=== PATIENT | female | born 1965 ===

== ENCOUNTER → 2018-03-11 14:00 | Outpatient (CLI) | payer OTHER, SELFPAY | DX: Z23 Encounter for immunization (principal) | CPT/HCPCS: 90471; 90686 ==

== ENCOUNTER 2023-10-04 16:51 | Emergency (ER) | payer OTHER, SELFPAY ==
[2023-10-04] VITALS (34 sets, daily range): BP systolic 124–189; BP diastolic 66–115; PULSE 75–157; RESP 12–31; TEMP 36.4; O2SAT 96–100; BMI 33.4
--- NOTE | 2023-10-04 17:05 | ED.ARRPALP ---
HPI - Arrhythmia/Palpitations <Nicanor Prado DO - Last Filed: 10/05/23 06:59> General Chief Complaint: Arrhythmia/Palpitations Stated Complaint: Palpitations Time Seen by Provider: 10/04/23 16:58 Source: patient Mode of arrival: Ambulatory History of Present Illness HPI narrative: Patient is a 57-year-old female is here for evaluation of palpitations and lightheadedness. Her current episode started approximately 1 hour ago. She did have an episode earlier today that was sudden onset while she was at work. Lasted an hour or more and then resolved on its own. She has had 2 prior episodes over the past several months. Each of which lasted several hours and then resolved on their own. She denies chest pain but does have quite a bit of discomfort from how fast her heart rate is gone. Lightheadedness. No shortness of breath. No diagnosis of atrial fibrillation. No prior history of coronary artery disease. Related Data Previous Rx's Medication Instructions Recorded apixaban 5 mg tablet 5 mg PO BID #60 tabs 10/04/23 diltiazem HCl 120 mg capsule,24 120 mg PO DAILY #30 caps 10/04/23 hr,extended release Allergies Allergy/AdvReac Type Severity Reaction Status Date / Time ondansetron [From Zofran] AdvReac Headache Verified 10/04/23 20:39 Review of Systems <DO Alfredo Alford Last Filed: 10/05/23 06:59> Constitutional Constitutional: Reports system reviewed and no additional complaints, except as documented Cardiovascular Cardiovascular: Reports system reviewed and no additional complaints, except as documented Respiratory Respiratory: Reports system reviewed and no additional complaints, except as documented Gastrointestinal Gastrointestinal: Reports system reviewed and no additional complaints, except as documented Integumentary/Breasts Skin/Breast: Reports system reviewed and no additional complaints, except as documented Neurologic Neurologic: Reports system reviewed and no additional complaints, except as documented Hematologic/Lymphatic On Anticoagulants: No Patient History <DO Alfredo Alford Last Filed: 10/05/23 06:59> Social History Smoking Status: Never smoker Smoking Status: Never smoker Substance Use Type: does not use Exam <DO Alfredo Alford Last Filed: 10/05/23 06:59> Initial Vital Signs Initial Vital Signs: Vital Signs Temperature 97.6 F 10/04/23 16:52 Pulse Rate 145 H 10/04/23 16:52 Respiratory Rate 18 10/04/23 16:52 Blood Pressure 165/101 H 10/04/23 16:52 Pulse Oximetry 99 10/04/23 16:52 Oxygen Delivery Method Room Air 10/04/23 16:52 Const General: cooperative, comfortable and No ill appearing HENMT Head: normal to inspection and normocephalic Resp Effort & Inspection: normal respiratory effort Auscultation: clear to auscultation bilaterally Cardio Rate: tachycardic Rhythm: regular rhythm GI Inspection: normal to inspection and non-distended Skin General: no rashes or lesions noted Neuro General: patient alert, patient awake, patient oriented x3 and moves all extremities Extrem General: capillary refill normal <Melinda Osborne MD - Last Filed: 10/04/23 23:03> Initial Vital Signs Initial Vital Signs: Vital Signs Temperature 97.6 F 10/04/23 16:52 Pulse Rate 145 H 10/04/23 16:52 Respiratory Rate 18 10/04/23 16:52 Blood Pressure 165/101 H 10/04/23 16:52 Pulse Oximetry 99 10/04/23 16:52 Oxygen Delivery Method Room Air 10/04/23 16:52 Procedures <Melinda Osborne MD - Last Filed: 10/04/23 23:03> Cardioversion Time of Cardioversion: 19:58 Consent Signed: Yes Indication: Atrial fibrillation Stability: Stable Number of attempts (shocks): 2 Joules used: 200 Cardiac rhythm post-cardioversion: Sinus with rapid returned to AFib x2 Procedural Sedation Time of procedure: 19:59 Consent signed: Yes Time out performed: Yes Indication: cardioversion ASA Class: III Mallampati Airway Classification: Class II IV Propofol dose (mg): 160 Intraservice time/total sedation time (min): 13 ED Sedation Level: Moderate (Concious) Patient Tolerated Procedure: Well Complications: none Course <Nicanor Prado DO - Last Filed: 10/05/23 06:59> Orders Ordered: Discontinued Medications Apixaban (Apixaban 5 Mg Tablet) 5 mg PO NOW ONE Stop: 10/04/23 19:06 Last Admin: 10/04/23 19:20 Dose: 5 mg Documented By: RICARDO Diltiazem HCl (Diltiazem 5 Mg/Ml Sdv) 20 mg IV NOW ONE Stop: 10/04/23 17:06 Last Admin: 10/04/23 17:10 Dose: 20 mg Documented By: SUSHILA Diltiazem HCl (Diltiazem 5 Mg/Ml Sdv) 20 mg IV NOW ONE Stop: 10/04/23 19:56 Last Admin: 10/04/23 19:59 Dose: 20 mg Documented By: OW Diltiazem HCl (Diltiazem 30 Mg Tablet) 60 mg PO NOW ONE Stop: 10/04/23 20:22 Last Admin: 10/04/23 20:32 Dose: 60 mg Documented By: KAMALA DILTIAZEM (Diltiazem 125 Mg/125 Ml-D5w) 125 mg in 125 mls @ 5 mls/hr IV TITRATE ANA PAULA; Protocol Last Titration: 10/04/23 20:52 Dose: 0 mg/hr, 0 mls/hr Documented By: Admin: 10/04/23 20:08 Dose: 5 mg/hr, 5 mls/hr Documented By: RICARDO Propofol (Propofol 200 Mg/20 Ml Vial) 200 mg 2 mg/kg (200 mg) IV NOW ONE Stop: 10/04/23 19:00 Last Admin: 10/04/23 19:42 Dose: 160 mg Documented By: RICARDO Vital Signs Vital signs: Vital Signs - 8 hr 10/04/23 23:00 10/04/23 23:06 Pulse Rate 76 75 Respiratory Rate 18 21 Blood Pressure 139/78 Pulse Oximetry 98 97 Oxygen Delivery Method Room Air <Melinda Osborne MD - Last Filed: 10/04/23 23:03> Orders Ordered: Discontinued Medications Apixaban (Apixaban 5 Mg Tablet) 5 mg PO NOW ONE Stop: 10/04/23 19:06 Last Admin: 10/04/23 19:20 Dose: 5 mg Documented By: OW Diltiazem HCl (Diltiazem 5 Mg/Ml Sdv) 20 mg IV NOW ONE Stop: 10/04/23 17:06 Last Admin: 10/04/23 17:10 Dose: 20 mg Documented By: SUSHILA Diltiazem HCl (Diltiazem 5 Mg/Ml Sdv) 20 mg IV NOW ONE Stop: 10/04/23 19:56 Last Admin: 10/04/23 19:59 Dose: 20 mg Documented By: RICARDO Diltiazem HCl (Diltiazem 30 Mg Tablet) 60 mg PO NOW ONE Stop: 10/04/23 20:22 Last Admin: 10/04/23 20:32 Dose: 60 mg Documented By: KAMALA DILTIAZEM (Diltiazem 125 Mg/125 Ml-D5w) 125 mg in 125 mls @ 5 mls/hr IV TITRATE ANA PAULA; Protocol Last Titration: 10/04/23 20:52 Dose: 0 mg/hr, 0 mls/hr Documented By: Admin: 10/04/23 20:08 Dose: 5 mg/hr, 5 mls/hr Documented By: RICARDO Propofol (Propofol 200 Mg/20 Ml Vial) 200 mg 2 mg/kg (200 mg) IV NOW ONE Stop: 10/04/23 19:00 Last Admin: 10/04/23 19:42 Dose: 160 mg Documented By: RICARDO Vital Signs Vital signs: Vital Signs - 8 hr 10/04/23 23:00 10/04/23 23:06 Pulse Rate 76 75 Respiratory Rate 18 21 Blood Pressure 139/78 Pulse Oximetry 98 97 Oxygen Delivery Method Room Air MDM - Arrhythmia/Palpitations <Nicanor Prado DO - Last Filed: 10/05/23 06:59> Lab Data Attestation: I reviewed the patient's lab results. 10/04/23 17:09 10/04/23 17:09 Labs: Lab Results 10/04/23 10/04/23 Range/Units 17:00 17:09 WBC 10.1 (4.5-11.0) X10^3/uL RBC 4.92 (4.0-5.2) X10^6/uL Hgb 15.0 (12.0-16.0) g/dL Hct 44.7 (36-46) % MCV 90.9 (80-100) fL MCH 30.4 (26-34) PG MCHC 33.4 (30-36) % RDW 14.3 (11.6-14.8) % Plt Count 338 (150-400) X10^3/uL Neut % (Auto) 65.9 (50-75) % Lymph % (Auto) 22.6 L (25-40) % Stanley % (Auto) 9.4 (3-14) % Eos % (Auto) 1.5 L (2-4) % Baso % (Auto) 0.6 (0-2) % Neut # (Auto) 6700 (5919-1896) /uL Lymph # (Auto) 2300 (1799-7654) /uL Stanley # (Auto) 900 (0-900) /uL Eos # (Auto) 200 (0-450) /uL Baso # (Auto) 100 (0-100) /uL Sodium 140 (137-145) mmol/L Potassium 3.5 (3.4-5.1) mmol/L Chloride 107 (98-107) mmol/L Carbon Dioxide 25 (22-32) mmol/L BUN 14 (7-17) mg/dL Creatinine 0.75 (0.52-1.04) mg/dL Estimated GFR > 60 (>60) mL/min BUN/Creatinine Ratio 18.7 (6-22) Glucose 101 H (70-100) mg/dL Calcium 9.9 (8.4-10.2) mg/dL Magnesium 2.1 (1.6-2.3) mg/dL Total Bilirubin 1.2 (0.2-1.3) mg/dL AST 32 (14-36) IU/L ALT 22 (<35) IU/L Alkaline Phosphatase 64 (38-126) U/L Troponin I < 0.012 (0.01-0.034) ng/mL Total Protein 8.1 (6.3-8.2) g/dL Albumin 4.8 (3.5-5.0) g/dL Globulin 3.3 (1.7-4.1) g/dL Albumin/Globulin Ratio 1.5 (1.0-2.8) Lipase 156 (23-300) U/L TSH 1.88 (0.47-4.68) uIU/mL Urine Color Yellow Urine Appearance Clear Urine pH 5.5 (4.5-8.0) Ur Specific [place] 1.010 (1.000-1.035) Urine Protein Negative (Negative) Urine Glucose (UA) Negative (Negative) g/dL Urine Ketones Negative (NEGATIVE) Urine Occult Blood 1+ H (Negative) Urine Nitrate Negative (Negative) Urine Bilirubin Negative (NEGATIVE) Urine Urobilinogen 0.2 (0.2) E.U./dL Ur Leukocyte Esterase Negative (NEGATIVE) Urine RBC 0-1/hpf (0-5/HPF) Urine WBC 0-1/hpf (0-5/HPF) Ur Squamous Epith Cells 1-5 /hpf (0-5/HPF) Urine Bacteria Occasional (0-1) (None) Ur Culture Indicated? Cult not indicated Vol Urine Centrifuged 10ml (spun) ECG Data Attestation: I personally reviewed and interpreted this ECG as follows: Interpretation: Atrial fibrillation Ventricular rate 136 Normal axis Normal QRS Normal QTC No ST T wave changes MDM Narrative Medical decision making narrative: Patient is AFib with RVR upon arrival. Symptoms started approximately 1 hour prior to arrival here in the ER. It appears that she had a prior episode earlier today and maybe 2 prior episodes over the past couple months. She was given 20 mg of Cardizem. Her heart rate improved to the low 100s however still AFib. Care turned over to Dr. osborne a change of shift to follow-up and most likely cardiovert. <Melinda Osborne MD - Last Filed: 10/04/23 23:03> Lab Data Labs: Lab Results 10/04/23 10/04/23 Range/Units 17:00 17:09 WBC 10.1 (4.5-11.0) X10^3/uL RBC 4.92 (4.0-5.2) X10^6/uL Hgb 15.0 (12.0-16.0) g/dL Hct 44.7 (36-46) % MCV 90.9 (80-100) fL MCH 30.4 (26-34) PG MCHC 33.4 (30-36) % RDW 14.3 (11.6-14.8) % Plt Count 338 (150-400) X10^3/uL Neut % (Auto) 65.9 (50-75) % Lymph % (Auto) 22.6 L (25-40) % Stanley % (Auto) 9.4 (3-14) % Eos % (Auto) 1.5 L (2-4) % Baso % (Auto) 0.6 (0-2) % Neut # (Auto) 6700 (3393-2330) /uL Lymph # (Auto) 2300 (5239-8157) /uL Stanley # (Auto) 900 (0-900) /uL Eos # (Auto) 200 (0-450) /uL Baso # (Auto) 100 (0-100) /uL Sodium 140 (137-145) mmol/L Potassium 3.5 (3.4-5.1) mmol/L Chloride 107 (98-107) mmol/L Carbon Dioxide 25 (22-32) mmol/L BUN 14 (7-17) mg/dL Creatinine 0.75 (0.52-1.04) mg/dL Estimated GFR > 60 (>60) mL/min BUN/Creatinine Ratio 18.7 (6-22) Glucose 101 H (70-100) mg/dL Calcium 9.9 (8.4-10.2) mg/dL Magnesium 2.1 (1.6-2.3) mg/dL Total Bilirubin 1.2 (0.2-1.3) mg/dL AST 32 (14-36) IU/L ALT 22 (<35) IU/L Alkaline Phosphatase 64 (38-126) U/L Troponin I < 0.012 (0.01-0.034) ng/mL Total Protein 8.1 (6.3-8.2) g/dL Albumin 4.8 (3.5-5.0) g/dL Globulin 3.3 (1.7-4.1) g/dL Albumin/Globulin Ratio 1.5 (1.0-2.8) Lipase 156 (23-300) U/L TSH 1.88 (0.47-4.68) uIU/mL Urine Color Yellow Urine Appearance Clear Urine pH 5.5 (4.5-8.0) Ur Specific [place] 1.010 (1.000-1.035) Urine Protein Negative (Negative) Urine Glucose (UA) Negative (Negative) g/dL Urine Ketones Negative (NEGATIVE) Urine Occult Blood 1+ H (Negative) Urine Nitrate Negative (Negative) Urine Bilirubin Negative (NEGATIVE) Urine Urobilinogen 0.2 (0.2) E.U./dL Ur Leukocyte Esterase Negative (NEGATIVE) Urine RBC 0-1/hpf (0-5/HPF) Urine WBC 0-1/hpf (0-5/HPF) Ur Squamous Epith Cells 1-5 /hpf (0-5/HPF) Urine Bacteria Occasional (0-1) (None) Ur Culture Indicated? Cult not indicated Vol Urine Centrifuged 10ml (spun) MDM Narrative Medical decision making narrative: Patient is AFib with RVR upon arrival. Symptoms started approximately 1 hour prior to arrival here in the ER. It appears that she had a prior episode earlier today and maybe 2 prior episodes over the past couple months. She was given 20 mg of Cardizem. Her heart rate improved to the low 100s however still AFib. Care turned over to Dr. osborne a change of shift to follow-up and most likely cardiovert. 6pm Dr Osborne Care is assumed Cardioversion is performed with 2 shocks at 200 joules with AP compression of the chest and a P placement of the pads. Each time she has a brief return to sinus rhythm and then rapidly returns to atrial fibrillation. After the 2nd shock, chose to not continue. She was given 5 mg of apixaban prior to the procedure. She had respond nicely to diltiazem and we will give her another bolus and start her on a drip. Will review with Cardiology for intractable atrial fibrillation 820pm discussed with Dr. Mccrary. His recommendation was to continue oral diltiazem to see if we can get rate control in the emergency department and if she would like than discharge home with diltiazem and anticoagulation. If that is not effective then she will need the diltiazem drip to continue and hospitalization. I did discuss options with the patient as well. She would much prefer going home. We did talk about the benefits of staying overnight facilitate more rapid echocardiogram. She does live in [place] and would want to follow up with [facility]. At this point she is otherwise asymptomatic and will try 60 mg of oral Cardizem. 10pm patient spontaneously converted to sinus rhythm. Repeat EKG shows sinus rhythm at a rate of 84 no ischemic changes appreciated. Discussed times for discharge. Blood pressure is high enough to add 120 mg ER as well as Eliquis. Prescriptions were given. Patient will go home with her sister this evening. She has a provider in [place] with whom she can follow up. She is access to her portal so labs can be shared with her [place] provider. She will need a Cardiology consult. Discussed the reasons for the diltiazem as well as the Eliquis in terms of rate control and stroke prevention. Also reviewed with her the relatively high dose of propofol that I needed to get her adequately sedated. I suggested that if she needed to be cardioverted in the future, that she let the doctor know higher dose of propofol to start might be helpful. At this point she is feeling well, planning on buying blood pressure cuff so she can monitor blood pressure and heart rate with the addition of the diltiazem, questions are answered regarding the Eliquis and warnings given regarding being on an anticoagulant. She is safe for discharge Discharge Plan Departure Patient Disposition: Home Clinical Impression: Paroxysmal atrial fibrillation Instructions: DI for Atrial Fibrillation Activity Restrictions/Additional Instructions: Thank you for coming in tonight. So much more difficult to be the patient than it is to be the provider isn't it? You were in atrial fibrillation. Your lab work was reassuring. We did attempt to cardioversions and each time we were successful however you rapidly went back into atrial fibrillation. You were given an additional dose of IV diltiazem and 60 mg of oral diltiazem approximately an hour and a half later converted spontaneously back to sinus rhythm. Your converted EKG is reassuringly normal at this time I am going to suggest that you continue with Eliquis to reduce your risk of stroke over the next months. Your risk of going back into atrial fibrillation is relatively high at this time. I am also going to suggest 125 mg of oral diltiazem. This is also a blood pressure medication and you will need to monitor both your heart rate and blood pressure to review numbers with your primary care provider. You do need to schedule an appointment with your primary care provider Prescriptions: New apixaban 5 mg tablet 5 mg PO BID Qty: 60 0RF diltiazem HCl 120 mg capsule,extended release 24 hr 120 mg PO DAILY Qty: 30 0RF Referrals: Miscellaneous,Doctor, [Primary Care Provider] - Stand Alone Forms: Patient Portal/API
[2023-10-04 17:07] LABS: Appearance Urine UA CLEAR; Bilirubin Urine UA NEGATIVE (NEGATIVE); Color Urine UA YELLOW; Glucose Urine UA NEGATIVE (Negative); Ketones Urine UA NEGATIVE (NEGATIVE); Leukocyte Esterase Urine UA NEGATIVE (NEGATIVE); Nitrite Urine UA NEGATIVE (Negative); Occult Blood Urine UA 1+ (Negative); Protein Urine UA NEGATIVE (Negative); Urobilinogen Urine UA 0.2 E.U./dL (0.2); pH Urine UA 5.5 (4.5-8.0)
[2023-10-04] MEDS: dilTIAZem 5 MG/ML SDV 20 MG IV ×2 (17:10→19:59)
[2023-10-04 17:13] LABS: Bacteria Urine Occasional (0-1); Culture Indicated Urine Cult Not Indicated; RBC Urine 0-1/HPF (0-5/HPF); Squamous Epithelial Cell Urine 1-5 /HPF (0-5/HPF); Urine Volume 10mL (spun); WBC Urine 0-1/HPF (0-5/HPF)
[2023-10-04 17:18] LABS: Add Manual Diff / Slide Review NO; Basophils Absolute Auto 100 /uL (0-100); Basophils Percent Auto 0.6 % (0-2); Eosinophils Absolute Auto 200 /uL (0-450); Eosinophils Percent Auto 1.5 % (2-4); Hematocrit 44.7 % (36-46); Lymphocytes Absolute Auto 2300 /uL (1100-4500); Lymphocytes Percent Auto 22.6 % (25-40); Mean Corpuscular HGB Conc 33.4 % (30-36); Mean Corpuscular Hemoglobin 30.4 PG (26-34); Mean Corpuscular Volume 90.9 fL (80-100); Monocytes Absolute Auto 900 /uL (0-900); Monocytes Percent Auto 9.4 % (3-14); Neutrophils Absolute Auto 6700 /uL (1500-7000); Neutrophils Percent Auto 65.9 % (50-75); Platelet Count 338 X10^3/uL (150-400); Red Blood Cell Count 4.92 X10^6/uL (4.0-5.2); Red Cell Distribution Width 14.3 % (11.6-14.8); White Blood Cell Count 10.1 X10^3/uL (4.5-11.0)
[2023-10-04 17:32] LABS: Alanine Aminotransferase 22 IU/L (<35); Albumin 4.8 g/dL (3.5-5.0); Albumin Globulin Ratio 1.5 (1.0-2.8); Alkaline Phosphatase 64 U/L (38-126); Aspartate Aminotransferase 32 IU/L (14-36); BUN Creatinine Ratio 18.7 (6-22); Bilirubin Total 1.2 mg/dL (0.2-1.3); Blood Urea Nitrogen 14 mg/dL (7-17); Calcium 9.9 mg/dL (8.4-10.2); Carbon Dioxide 25 mmol/L (22-32); Chloride 107 mmol/L (98-107); Estimated Glomerular Filt Rate > 60 mL/min (>60); Globulin 3.3 g/dL (1.7-4.1); Glucose 101 mg/dL (70-100); HEMOLYSIS < 15 (0-50); Lipase 156 U/L (23-300); Magnesium 2.1 mg/dL (1.6-2.3); Potassium 3.5 mmol/L (3.4-5.1); Sodium 140 mmol/L (137-145); Total Protein 8.1 g/dL (6.3-8.2)
[2023-10-04 18:02] LABS: Thyroid Stimulating Hormone 1.88 uIU/mL (0.47-4.68)
[2023-10-04 18:27] LABS: Troponin I < 0.012 ng/mL (0.01-0.034)
[2023-10-04] MEDS: APIXABAN 5 MG TABLET PO (19:20)
--- NOTE | 2023-10-04 19:38 | PC.NURSE ---
Pt in semifowler position speaking with ED MD. Pt is A&0x4 and reports having no further questions at this time. Pt signs consent. Pt denies pain, dizziness or SOB. Kia primary RN, Pavithra secondary RN, Joel RT and Dr. Iglesias at bedside.
[2023-10-04] MEDS: propofoL 200 MG/20 ML VIAL IV (19:42)
--- NOTE | 2023-10-04 19:55 | DI.RAD.S_ITS ---
PROCEDURE: XR CHEST 1V INDICATIONS: a fib TECHNIQUE: One view of the chest was acquired. COMPARISON: None. FINDINGS: Surgical changes and devices: None. Lungs and pleura: Lungs are clear. Low lung volumes. No pleural effusions or pneumothorax. Mediastinum: Mediastinal contours appear normal. Heart size is enlarged. Bones and chest wall: No suspicious bony lesions. Overlying soft tissues appear unremarkable. IMPRESSION: Cardiomegaly. No acute pulmonary process. Dictated by: Rashid Zurita M.D. on 10/04/2023 at 20:11 Approved by: Rashid Zurita M.D. on 10/04/2023 at 20:12
[2023-10-04] MEDS: DILTIAZEM 125 MG/125 ML PIGGYBACK IV (20:08)
--- NOTE | 2023-10-04 20:17 | PC.NURSE ---
Dr. Iglesias at bedside discussing with pt plan of care after consulting with generator repairer. Pt is A&Ox4. Pt denies CP, dizziness or SOB. Pt skin is warm pink and dry.
[2023-10-04] MEDS: dilTIAZem 30 MG TABLET 60 MG PO (20:32)
--- NOTE | 2023-10-04 22:01 | PC.NURSE ---
2121: While sitting in bed pt reports that fatuma palpitations have resolved and her HR ranges from 80-100bpm. Pt then walks to the bathroom with a steady gait. Upon returning to [facility] pt reports palpitations. Denies SOB, CP, dizziness. Upon ambulating pt HR went to 140bpm and returned to 80-90s after 1 minute of rest. 2129: Pt converts to NSR on conveyor monitor with HR 85
== END 2023-10-04 23:18 | disposition home or self-care (01) ==
PROVIDERS: Emergency Medicine; Emergency Provider Emergency Medicine
DX: I48.0 Paroxysmal atrial fibrillation (principal); Z79.01 Long term (current) use of anticoagulants
CPT/HCPCS: 36415; 71045; 80053; 81001; 83690; 83735; 84443; 84484; 85025; 92960; 93005; 96365; 96375; 96376; 99152; 99285; J2704